=== PATIENT | female | born 1970 | race American Indian/Alaskan Native ===

== ENCOUNTER 2022-01-29 12:13 | Emergency (ER) | payer BC ==
[2022-01-29] MEDS ORDERED: fentaNYL 100 MCG/2 ML INJ IV ONE (12:30)
[2022-01-29] MEDS ORDERED: SODIUM CHLORIDE 0.9% 1000 ML 1,000 ML IV ONE (12:30)
[2022-01-29] MEDS ORDERED: KETOROLAC 30 MG/1 ML INJ IV ONE (12:30)
--- NOTE | 2022-01-29 12:33 | Emergency Department Report ---
ED Abdominal Pain HPI - General Chief Complaint: Abdominal Pain Stated Complaint: SEVERE PAIN ON LT SIDE Time Seen by Provider: 01/29/22 12:25 Source: patient Mode of arrival: Ambulatory Limitations: No Limitations - History of Present Illness Initial Comments: Patient presents secondary to left leg pain. It was abrupt onset at about 6 AM. It has been in the left flank and radiating to the left abdomen. The pain is sharp and stabbing. It seems to wax and wane but is constant. It never completely resolves. This is not worse with movement. She states that she has had kidney stones before. Last almost 3 years ago. This is the same kind of pa in. She reports nausea without vomiting. She has not noticed dysuria or frequency. She has had no fevers or chills. Again, there is no history of travel or trauma. - Related Data Previous Rx's Medication Instructions Recorded Last Taken Type HYDROcodone/APAP 5-325 [[place] 1 each PO Q6HR PRN #15 tablet 01/29/22 Unknown Rx 5/325] Ondansetron [Zofran ODT TAB] 8 mg PO Q8HR PRN #15 tab.rapdis 01/29/22 Unknown Rx Allergies Allergy/AdvReac Type Severity Reaction Status Date / Time latex Allergy Rash Verified 01/29/22 12:17 sulfamethoxazole Allergy Hives Verified 01/29/22 12:17 [From Bactrim] trimethoprim [From Bactrim] Allergy Hives Verified 01/29/22 12:17 adhesive Allergy Rash Uncoded 01/29/22 12:18 ED Review of Systems ROS: Stated complaint: SEVERE PAIN ON LT SIDE Other details as noted in HPI Comment: All other systems reviewed and negative Constitutional: denies: fever Eyes: denies: vision change ENT: denies: throat pain Respiratory: denies: cough Cardiovascular: denies: chest pain Endocrine: denies: unexplained weight loss Gastrointestinal: as per HPI Genitourinary: as per HPI Musculoskeletal: as per HPI Skin: denies: rash Neurological: denies: headache Hematological/Lymphatic: denies: easy bruising ED Past Medical Hx - Past Medical History Additional medical history: Ureteral colic - Family History Family history: no significant - Medications Home Medications: Home Medications Medication Instructions Recorded Confirmed Last Taken Type HYDROcodone/APAP 5-325 [[place] 1 each PO Q6HR PRN #15 tablet 01/29/22 Unknown Rx 5/325] Ondansetron [Zofran ODT TAB] 8 mg PO Q8HR PRN #15 tab.rapdis 01/29/22 Unknown Rx ED Physical Exam - General Limitations: No Limitations, Other (Pulse ox noted and normal) General appearance: alert, in no apparent distress, obese (Morbid) - Head Head exam: Present: atraumatic, normocephalic - Eye Eye exam: Present: normal appearance, PERRL, EOMI - ENT ENT exam: Present: normal orophraynx, normal external ear exam - Neck Neck exam: Present: normal inspection. Absent: meningismus - Respiratory Respiratory exam: Present: normal lung sounds bilaterally. Absent: respiratory distress - Cardiovascular Cardiovascular Exam: Present: normal rhythm, tachycardia - GI/Abdominal GI/Abdominal exam: Present: soft. Absent: distended, tenderness, pulsatile mass - Extremities Exam Extremities exam: Present: normal capillary refill - Back Exam Back exam: Present: CVA tenderness (L). Absent: CVA tenderness (R) - Neurological Exam Neurological exam: Present: alert, oriented X3, CN II-XII intact, reflexes normal. Absent: motor sensory deficit - Psychiatric Psychiatric exam: Present: normal affect, normal mood - Skin Skin exam: Present: warm, dry ED Course Vital Signs 01/29/22 01/29/22 12:20 18:36 Temperature 97.6 F Pulse Rate 102 H 90 Respiratory 20 16 Rate Blood Pressure 138/85 Blood Pressure 130/80 [Right] O2 Sat by Pulse 98 99 Oximetry - Reevaluation(s) Reevaluation #1: 01/29/22 12:33 IV and labs ordered. X-rays ordered. Old records noted. Reevaluation #2: 01/29/22 17:07 UA is still pending. Reevaluation #3: 01/30/22 10:33 UA was noted and the patient was discharged ED Medical Decision Making - Lab Data Result diagrams: 01/29/22 12:35 01/29/22 12:35 - Radiology Data Radiology results: report reviewed - Medical Decision Making Patient presented with flank pain. She was found to have hematuria and suggestive of stone on x-ray. She did not have ongoing pain or intractable pain. She did not have nausea or vomiting to suggest high-grade obstruction. She certainly does not have pyelonephritis or acute kidney injury. She was treated adequately referred for outpatient evaluation follow-up. Critical Care Time: No Critical care attestation.: If time is entered above; I have spent that time in minutes in the direct care of this critically ill patient, excluding procedure time. ED Disposition Clinical Impression: Acute left flank pain, Ureter colic Disposition: HOME / SELF CARE / HOMELESS Is pt being admited?: No Condition: Stable Instructions: Low-Purine Eating Plan, Renal Colic, [id number], Dietary Guidelines to Help Prevent Kidney Stones, Abdominal Pain (ED) Additional Instructions: Drink plenty of water. Strain the urine. Return for problems. Follow-up with your regular doctor for recheck and further evaluation. Prescriptions: HYDROcodone/APAP 5-325 [[place] 5/325] 1 each PO Q6HR PRN #15 tablet PRN Reason: Pain Ondansetron [Zofran ODT TAB] 8 mg PO Q8HR PRN #15 tab.rapdis PRN Reason: Nausea Referrals: LAINA RUBI MD [Primary Care Provider] - 3-5 Days Forms: Work/School Release Form(ED)
[2022-01-29 12:58] LABS: Hematocrit 39.9 % (30.3-42.9); Hemoglobin 12.8 gm/dl (10.1-14.3); Mean Corpuscular HGB Conc 32 % (30-34); Mean Corpuscular Volume 84 fl (79-97); Platelet Count 166 K/mm3 (140-440); Red Blood Count 4.75 M/mm3 (3.65-5.03); Red Cell Distribution Width 14.5 % (13.2-15.2)
--- NOTE | 2022-01-29 13:01 | XRay Report ---
ABDOMEN 1 VIEW(S) INDICATION / CLINICAL INFORMATION: l flank pain, h/o stones. COMPARISON: None available. FINDINGS: TUBES / LINES: None. BOWEL GAS PATTERN: No significant abnormality. FREE AIR / EXTRALUMINAL GAS: None seen. ADDITIONAL FINDINGS: A 4 mm calcification is identified in the left paraspinal region near the level of L3 which could represent a left ureteral stone. No obvious renal calcifications. Left pelvic phleb oliths are noted. IMPRESSION: Probable mid left ureteral stone. Signer Name: Anurag Albarran Jr, MD Signed: 01/29/2022 12:56 PM Workstation Name: [id number]
[2022-01-29 13:12] LABS: Calcium 9.3 mg/dL (8.4-10.2)
[2022-01-29 17:04] LABS: Bilirubin,Urine NEG (Negative); Blood,Urine LG (Negative); Color,Urine Yellow (Yellow); Mucus,Urine 1+ /HPF; Urobilinogen,Urine < 2.0 mg/dL (<2.0)
[2022-01-29 18:45] VITALS: BP 130/80
== END 2022-01-29 18:39 | disposition home or self-care (01) ==
LOC: ED 12:13
DX: R10.32 Left lower quadrant pain (principal); Z91.040 Latex allergy status; Z88.2 Allergy status to sulfonamides
CPT/HCPCS: 36415; 74018; 80048; 81001; 85027; 96361; 96374; 99284; J1885; J3010; J7030; Q0162